=== PATIENT | female | born 1965 | race Caucasian/White ===

== ENCOUNTER → 2018-01-27 | Outpatient (CLI) | payer OTHER ==
[~2018-01-27] MED LIST: RT-ALBUTEROL SULF 2.5 MG/3 ML PRE-MIX VIAL INH ONE
--- NOTE | 2018-01-27 12:31 | Diagnostic Imaging Report ---
PA and lateral chest at 1141 hours. INDICATION: Asthma, worsening cough. There are no prior studies available for comparison. FINDINGS: The heart size is within normal limits. The lungs are clear. There is no evidence for failure, pneumonia or for pleural effusion. Mediastinum is not widened. The osseous structures are intact. IMPRESSION: There is no evidence for an acute cardiopulmonary abnormality. Dictated by: Dictated on workstation # [id number]
== END ==
LOC: RT 09:12
PROVIDERS: ATTEND Neuromusculoskeletal Medicine, Sports Medicine
DX: Z02.71 Encounter for disability determination (principal)
CPT/HCPCS: 71046; 94060

== ENCOUNTER 2018-10-27 14:30 | Outpatient (CLI) | payer MEDICAID ==
[~2018-10-27] VITALS: Ht 152.4 cm; Wt 90.7 kg
[2018-10-27] MEDS ORDERED: BUPR100T15 PO (14:42)
[2018-10-27] MEDS ORDERED: CLON0.5T13 PO (14:42)
[2018-10-27] MEDS ORDERED: ATOR20TA66 PO (15:46)
[2018-10-27] MEDS ORDERED: LEVO75TA6 PO (15:46)
[2018-10-27] MEDS ORDERED: LISI1TAB8 PO (15:46)
[2018-10-27] MEDS ORDERED: RT-ALBUINH IH (15:46)
[2018-10-27] MEDS ORDERED: PANT20TA3 PO (15:46)
[2018-10-27] MEDS ORDERED: ASPI-586 PO (15:46)
[2018-10-27] MEDS ORDERED: METO100T12 PO (15:46)
== END 2018-10-27 15:47 | disposition home or self-care (01) ==
LOC: PREOP 14:30
PROVIDERS: ATTEND Surgery
DX: Z01.818 Encounter for other preprocedural examination (principal)

== ENCOUNTER 2019-05-29 21:29 | Emergency (ER) | payer MEDICAID ==
[~2019-05-29] VITALS: Ht 152.4 cm; Wt 81.4 kg
[~2019-05-29 21:29] MED LIST changes: +ASPI-586 PO; +ATOR20TA66 PO; +BUPR100T15 PO; +CLON0.5T13 PO; +LEVO75TA6 PO; +LISI1TAB8 PO; +METO100T12 PO; +PANT20TA3 PO; +RT-ALBUINH IH; -RT-ALBUTEROL SULF 2.5 MG/3 ML PRE-MIX VIAL INH ONE
--- NOTE | 2019-05-29 22:04 | ED General ---
General Stated Complaint: DENTAL PAIN History of Present Illness Date Seen by Provider: May 29, 2019 Time Seen by Provider: 21:45 Initial Comments Patient's there is swelling in the left jaw she was in urgent care earlier this morning reveal shot of what sounded like Rocephin but is Continuing to swell in that left lower jaw. No fever no chills not coughing up anything has no problems swallowing history of salivary gland stones and swelling but this seems to be related to a bad tooth in the left posterior lower jaw Timing/Duration: 2-3 Days Severity: Moderate Modifying Factors: worse with Eating, worse with Movement Associated Systoms: No Cough, No Malaise, No Nausea/Vomiting Allergies and Home Medications Allergies Coded Allergies: levofloxacin (Unverified Allergy, Severe, RASH, 01/27/18) Uncoded Allergies: codine (Adverse Reaction, Unknown, 01/27/18) nausea Home Medications Albuterol Sulfate 1 Puff Puff, 2 PUFF IH Q4H PRN for WHEEZING, (Reported) 1 PUFF = 90 MCG Aspirin 81 Mg Tablet.dr, 81 MG PO DAILY, (Reported) Atorvastatin Calcium 20 Mg Tablet, 20 MG PO DAILY, (Reported) Bupropion HCl 100 Mg Tablet, 100 MG PO BID, (Reported) Clonazepam 0.5 Mg Tablet, 0.5 MG PO TID, (Reported) Levothyroxine Sodium 75 Mcg Tablet, 75 MCG PO DAILY, (Reported) Lisinopril/Hydrochlorothiazide 1 Each Tablet, 1 EACH PO DAILY, (Reported) Metoprolol Tartrate 100 Mg Tablet, 100 MG PO BID, (Reported) Pantoprazole Sodium 20 Mg Tablet.dr, 20 MG PO DAILY, (Reported) Patient Home Medication List Home Medication List Reviewed: Yes Review of Systems Review of Systems Constitutional: No chills, No fever, No malaise, No weakness EENTM: mouth swelling; No ear pain, No mouth pain, No throat pain Respiratory: no symptoms reported Cardiovascular: no symptoms reported Gastrointestinal: no symptoms reported Genitourinary: no symptoms reported Musculoskeletal: no symptoms reported Skin: no symptoms reported Past Tnnqmdz-Xqcafd-Xyimgt Hx Past Med/Social Hx: Reviewed Nursing Past Med/Soc Hx Patient Social History Type Used: Cigarettes Recent Foreign Travel: No Contact w/Someone Who Travel: No Recent Hopitalizations: No Seasonal Allergies Seasonal Allergies: Yes Past Medical History Surgeries: Yes (oral sx, lithotripsy) Bladder Surgery Respiratory: Yes (wears oxygen at hs, and during day prn) Asthma, Emphysema Cardiac: Yes Hypertension Neurological: No Genitourinary: Yes Kidney Stones Gastrointestinal: Yes Gastroesophageal Reflux Endocrine: Yes Hypothyroidsim HEENT: No Cancer: No Psychosocial: Yes Anxiety, Depression Blood Disorders: Yes (anemia) Physical Exam Vital Signs Vital Signs - First Documented 05/29/19 21:37 Temp 36.0 Pulse 77 Resp 20 B/P (MAP) 154/102 (119) Pulse Ox 98 O2 Delivery Room Air Capillary Refill : Height, Weight, BMI Height: 5'0.00" Weight: 200lbs. 0.0oz. 90.148448wo; 39.1 BMI Method: General Appearance: WD/WN, Moderate Distress Eyes: Bilateral Eye PERRL, Bilateral Eye EOMI HEENT: TMs Normal, Other (pharyngeal erythema noted significant swelling in the left lower jaw palpable externally as well as noted internally with the tooth on the lower jaws demonstrating quite a bit of dental caries.) Neck: Lymphadenopathy (L); No Lymphadenopathy (R) Respiratory: Lungs Clear, No Respiratory Distress Cardiovascular: Regular Rate, Rhythm, No Murmur Gastrointestinal: Normal Bowel Sounds, Soft Neurologic/Psychiatric: Alert, Oriented x3 Skin: Normal Color, Warm/Dry Progress/Results/Core Measures Suspected Sepsis SIRS Temperature: Pulse: Respiratory Rate: Blood Pressure / Mean: Results/Orders My Orders Orders - FREDDY ROWE JR, MD Ct Maxillofacial Wo (05/29/19 21:58) Ibuprofen Tablet (Motrin Tablet) (05/29/19 23:45) Medications Given in ED Current Medications Medications Dose Ordered Sig/Rebekah Route Start Time Stop Time Status Last Admin Dose Admin Ibuprofen 600 mg ONCE ONCE PO 05/29/19 23:45 05/29/19 23:46 DC 05/29/19 23:45 600 MG Vital Signs/I&O 05/29/19 21:37 Temp 36.0 Pulse 77 Resp 20 B/P (MAP) 154/102 (119) Pulse Ox 98 O2 Delivery Room Air Capillary Refill : Progress Note : Time: 23:[address] scan shows a dental abscess but no abscess in the side of the cheek at this time will the plan of Rocephin daily for the next 3 days dental appointment with extraction as soon as possible will send home with the [employer] home pack due to the amount of swelling in the [place] side of the face. Departure Impression Primary Impression: Dental caries Additional Impression: Dental abscess Disposition: HOME, SELF-CARE Condition: Stable Departure-Patient Inst. Referrals: NO,LOCAL PHYSICIAN (PCP/Family) Primary Care Physician Patient Instructions: Tooth Abscess (DC) FREDDY ROWE JR, MD May 29, 2019 22:04
[2019-05-29] MEDS ORDERED: IBUPROFEN 600 MG (MOTRIN) TAB PO ONE (23:45)
[2019-05-30] MEDS ORDERED: RX-HYDROCODONE/APAP 5/325 MG #4 TAB PK PO PRN
[2019-05-30 00:05] VITALS: BP 142/96
--- NOTE | 2019-05-30 06:38 | Diagnostic Imaging Report ---
PROCEDURE: CT maxillofacial without contrast. TECHNIQUE: Multiple contiguous axial images were obtained through the facial bones without the use of intravenous contrast. Auto Exposure Controls were utilized during the CT exam to meet ALARA standards for radiation dose reduction. INDICATION: Facial swelling. COMPARISON: None FINDINGS: There is asymmetric soft tissue swelling primarily overlying the left mandible. There is some extension into the submental region as well as into the premaxillary region of the left face. Evaluation for small focal fluid collection is suboptimal given lack of intravenous contrast. There is also beam hardening artifact from patient's indwelling metallic fillings. Despite this, no large air-fluid collection is seen. There is no soft tissue emphysema. No unexpected radiopaque foreign bodies are identified. A few prominent appearing lymph nodes are also noted, left greater than right. Evaluation of the underlying osseous structures demonstrates focal lucency surrounding the root of the posterior left mandibular molar. There is erosion of the crown. Findings are consistent with dental caries and potential periapical abscess. There is no extension of erosion through the cortex of the mandible. Several other dental erosions consistent with dental caries are also identified involving the bilateral maxillary and mandibular teeth. There is no acute fracture or dislocation of the facial bones. Specifically, there is no fracture or dislocation of the mandible. Bilateral zygomatic arches are intact. Bilateral medial and lateral pterygoid plates are intact as well. Minimal debris is noted within the posterior right ethmoid air cell. Osteoma is also noted on the right. Otherwise, paranasal sinuses are clear without significant mucosal thickening or large air-fluid level. There is no acute fracture of the paranasal sinuses. Nasal septum and nasal bones are intact as well. There is no fracture of the orbits. Globes are symmetric. IMPRESSION: 1. Moderate asymmetric soft tissue swelling epicentered over the left mandible with a few prominent asymmetric left soft tissue lymph nodes. 2. No discrete focal fluid collection to suggest abscess, although evaluation is suboptimal for reasons stated above. 3. Multiple dental caries, greatest involving the posterior left mandibular molar with findings concerning for periapical abscess. Dental consultation is advised. Dictated by: Dictated on workstation # [id number]
== END 2019-05-30 00:05 | disposition home or self-care (01) ==
LOC: EDUNIT# 21:29 → ER FS 21:31
DX: K02.9 Dental caries, unspecified (principal); K04.7 Periapical abscess without sinus; J43.9 Emphysema, unspecified; I10 Essential (primary) hypertension; F41.9 Anxiety disorder, unspecified; F32.9 Major depressive disorder, single episode, unspecified; D64.9 Anemia, unspecified; Z87.442 Personal history of urinary calculi; Z88.1 Allergy status to other antibiotic agents; Z88.5 Allergy status to narcotic agent; Z79.82 Long term (current) use of aspirin
CPT/HCPCS: 70486

== ENCOUNTER → 2020-09-18 | Outpatient (CLI) | payer MEDICARE, MEDICAID ==
[~2020-09-18] MED LIST changes: -CLON0.5T13 PO; +CLON0.5T4 PO; +LISI1TAB46 PO; -LISI1TAB8 PO; +PANT20TA18 PO; -PANT20TA3 PO
== END ==
LOC: CARD 09:00
PROVIDERS: ATTEND Nurse Practitioner Family
DX: R07.89 Other chest pain (principal); R06.09 Other forms of dyspnea
CPT/HCPCS: 93306

== ENCOUNTER → 2020-12-25 | Outpatient (CLI) | payer MEDICARE, MEDICAID ==
--- NOTE | 2020-12-25 12:50 | Diagnostic Imaging Report ---
INDICATION: Pain. FINDINGS: Three views of the right foot show no fracture, dislocation, erosion, or osseous destructive process. No site of suspicious bone formation. The alignment is normal. IMPRESSION: No acute finding. Dictated by: Dictated on workstation # [id number]
== END ==
LOC: RAD FS 10:51
PROVIDERS: ATTEND Nurse Practitioner Family
DX: S99.921A Unspecified injury of right foot, initial encounter (principal); X58.XXXA Exposure to other specified factors, initial encounter
CPT/HCPCS: 73630

== ENCOUNTER → 2021-03-12 | Outpatient (CLI) | payer MEDICARE, MEDICAID | LOC: CARD 09:30 | PROVIDERS: ATTEND Nurse Practitioner Family | DX: I35.1 Nonrheumatic aortic (valve) insufficiency (principal) | CPT/HCPCS: 93306 ==

== ENCOUNTER → 2021-11-22 | Outpatient (CLI) | payer MEDICARE, MEDICAID ==
--- NOTE | 2021-11-22 13:52 | Diagnostic Imaging Report ---
PROCEDURE: CT head without contrast. TECHNIQUE: Multiple contiguous axial images were obtained through the brain without the use of intravenous contrast. Auto Exposure Controls were utilized during the CT exam to meet ALARA standards for radiation dose reduction. INDICATION: Frequent falls with bilateral lower extremity weakness. CT HEAD: CT images of the head were obtained. FINDINGS: Ventricles and sulci are within normal limits for size. There is no intracranial hemorrhage identified. There is no abnormal mass effect or shift of midline structures. IMPRESSION: Unremarkable CT of the head. Dictated by: Dictated on workstation # [id number]
== END ==
LOC: RAD FS 13:33
PROVIDERS: ATTEND Nurse Practitioner Family
DX: R29.6 Repeated falls (principal); R53.1 Weakness
CPT/HCPCS: 70450

== ENCOUNTER 2022-03-19 18:46 | Emergency (ER) | payer MEDICARE, MEDICAID ==
[~2022-03-19] VITALS: Ht 152 cm; Wt 66.2 kg
--- NOTE | 2022-03-19 18:53 | ED Lower Extremity ---
General Stated Complaint: L ANKLE SWELLING History of Present Illness Date Seen by Provider: Mar 19, 2022 Time Seen by Provider: 18:51 Initial Comments 56-year-old female presents with left medial ankle swelling and warmth. Patient reports she has had lateral ankle swelling for quite a while to that ankle but over the last couple days she has had swelling over the medial part. That has some mild erythema and redness. She denies any known injury. The warmth and swelling has not significantly expanded. She denies any systemic complaints. Allergies and Home Medications Allergies Coded Allergies: levofloxacin (Unverified Allergy, Severe, RASH, 01/27/18) Uncoded Allergies: codine (Adverse Reaction, Unknown, 01/27/18) nausea Patient Home Medication List Home Medication List Reviewed: Yes Albuterol Sulfate (Proair Hfa) 1 Puff Puff, 2 PUFF IH Q4H PRN for WHEEZING, (Reported) Entered as Reported by: SHAKIRA WHEATLEY on 10/27/18 154 Aspirin (Aspir 81) 81 Mg Tablet.dr, 81 MG PO DAILY, (Reported) Entered as Reported by: SHAKIRA WHEATLEY on 10/27/18 154 Atorvastatin Calcium (Atorvastatin Calcium) 20 Mg Tablet, 20 MG PO DAILY, (Reported) Entered as Reported by: SHAKIRA WHEATLEY on 10/27/181545 Bupropion HCl (Bupropion HCl) 100 Mg Tablet, 100 MG PO BID, (Reported) Entered as Reported by: SHAKIRA WHEATLEY on 10/27/18 144 Cephalexin (Cephalexin) 500 Mg Tablet, 500 MG PO QID Prescribed by: MASOUD MUNOZ on 03/19/221948 Clonazepam (Clonazepam) 0.5 Mg Tablet, 0.5 MG PO TID, (Reported) Entered as Reported by: SHAKIRA WHEATLEY on 10/27/18 144 Levothyroxine Sodium (Levothyroxine Sodium) 75 Mcg Tablet, 75 MCG PO DAILY, (Reported) Entered as Reported by: SHAKIRA WHEATLEY on 10/27/181545 Lisinopril/Hydrochlorothiazide (Lisinopril-Hctz 20-12.5 mg Tab) 1 Each Tablet, 1 EACH PO DAILY, (Reported) Entered as Reported by: SHAKIRA WHEATLEY on 10/27/181545 Metoprolol Tartrate (Metoprolol Tartrate) 100 Mg Tablet, 100 MG PO BID, (Reported) Entered as Reported by: SHAKIRA WHEATLEY on 10/27/181545 Pantoprazole Sodium (Pantoprazole Sodium) 20 Mg Tablet.dr, 20 MG PO DAILY, (Reported) Entered as Reported by: SHAKIRA WHEATLEY on 10/27/181545 Review of Systems Constitutional: No chills, No fever EENTM: no symptoms reported Respiratory: no symptoms reported Cardiovascular: no symptoms reported Gastrointestinal: no symptoms reported Genitourinary: no symptoms reported Musculoskeletal: see HPI Skin: see HPI Psychiatric/Neurological: No Symptoms Reported Past Xmlvjdp-Veqffo-Abvbav Hx Seasonal Allergies Seasonal Allergies: Yes Past Medical History Surgeries: Yes (oral sx, lithotripsy) Bladder Surgery Respiratory: Yes (wears oxygen at hs, and during day prn) Asthma, Emphysema Cardiac: Yes Hypertension Neurological: No Genitourinary: Yes Kidney Stones Gastrointestinal: Yes Gastroesophageal Reflux Endocrine: Yes Hypothyroidsim HEENT: No Cancer: No Psychosocial: Yes Anxiety, Depression Integumentary: No Blood Disorders: Yes (anemia) Physical Exam Vital Signs Vital Signs - First Documented 03/19/22 19:04 Temp 36.6 Pulse 68 Resp 20 B/P (MAP) 164/92 (116) Pulse Ox 97 O2 Delivery Room Air Capillary Refill : Height, Weight, BMI Height: 5'0.00" Weight: 200lbs. 0.0oz. 90.510895pz; 35.00 BMI Method: General Appearance: WD/WN, no apparent distress Neck: full range of motion, supple Cardiovascular: normal peripheral pulses, regular rate, rhythm Respiratory: lungs clear, normal breath sounds Gastrointestinal: non tender, soft Ankles: left ankle soft tissue tenderness, left ankle swelling Neurologic/Psychiatric: alert, normal mood/affect, oriented x 3 Skin: other (Mild warmth and erythema left medial ankle) Progress/Results/Core Measures Results/Orders Lab Results Laboratory Tests Test 03/19/22 19:11 Range/Units White Blood Count 9.3 4.3-11.0 10^3/uL Red Blood Count 3.63 L 3.80-5.11 10^6/uL Hemoglobin 12.7 11.5-16.0 g/dL Hematocrit 36 35-52 % Mean Corpuscular Volume 99 80-99 fL Mean Corpuscular Hemoglobin 35 H 25-34 pg Mean Corpuscular Hemoglobin Concent 35 32-36 g/dL Red Cell Distribution Width 12.3 10.0-14.5 % Platelet Count 208 130-400 10^3/uL Mean Platelet Volume 9.1 9.0-12.2 fL Immature Granulocyte % (Auto) 0 % Neutrophils (%) (Auto) 70 42-75 % Lymphocytes (%) (Auto) 21 12-44 % Monocytes (%) (Auto) 8 0-12 % Eosinophils (%) (Auto) 1 0-10 % Basophils (%) (Auto) 0 0-10 % Neutrophils # (Auto) 6.5 1.8-7.8 10^3/uL Lymphocytes # (Auto) 1.9 1.0-4.0 10^3/uL Monocytes # (Auto) 0.7 0.0-1.0 10^3/uL Eosinophils # (Auto) 0.1 0.0-0.3 10^3/uL Basophils # (Auto) 0.0 0.0-0.1 10^3/uL Immature Granulocyte # (Auto) 0.0 0.0-0.1 10^3/uL C-Reactive Protein 2.44 H <0.50 MG/DL My Orders Orders - MASOUD MUNOZ DO Cbc With Automated Diff (03/19/22 19:05) Crp Fs (03/19/22 19:05) Uric Acid (03/19/22 19:05) Ankle 3 View Left (03/19/22 19:05) Cephalexin Capsule (Keflex Capsule) (03/19/22 19:45) Ketorolac Injection (Toradol Injection) (03/19/22 19:46) Vital Signs/I&O 03/19/22 19:04 Temp 36.6 Pulse 68 Resp 20 B/P (MAP) 164/92 (116) Pulse Ox 97 O2 Delivery Room Air Progress Progress Note : Progress Note Patient's x-rays labs and exam seem more consistent with cellulitis versus gout. I will start her on Keflex. Did recommend that she however take ibuprofen 800 mg 3 times a day or Naprosyn twice daily. Patient is given Keflex in the ER along with Toradol shot. She is to follow-up with her primary care provider about a week for recheck sooner if it worsens. Patient stable and discharged home Departure Impression Primary Impression: Cellulitis of left ankle Disposition: HOME, SELF-CARE Condition: Stable Departure-Patient Inst. Referrals: CHEYANNE ROSS APRN (PCP) Primary Care Physician [facility] (Family) Primary Care Physician Patient Instructions: Cellulitis and Erysipelas (Skin Infections) Add. Discharge Instructions: 800 mg ibuprofen 3 times a day or Aleve/naproxen twice daily for 5 days Follow-up with your primary care provider in about 1 week for recheck or sooner if symptoms continue to worsen Scripts Cephalexin (Cephalexin) 500 Mg Tablet 500 MG PO QID, #20 TAB 0 Refills . Prov: MASOUD MUNOZ DO 03/19/22 MASOUD MUNOZ DO Mar 19, 2022 18:53
[2022-03-19 19:20] LABS: BASOPHILS % (AUTO) 0 % (0-10); EOSINOPHILS # (AUTO) 0.1 10^3/uL (0.0-0.3); EOSINOPHILS % (AUTO) 1 % (0-10); HEMATOCRIT 36 % (35-52); HEMOGLOBIN 12.7 g/dL (11.5-16.0); LYMPHOCYTES # (AUTO) 1.9 10^3/uL (1.0-4.0); LYMPHOCYTES % (AUTO) 21 % (12-44); MEAN CORPUSCULAR HEMOGLOBIN 35 pg (25-34); MEAN CORPUSCULAR HGB CONC 35 g/dL (32-36); MEAN CORPUSCULAR VOLUME 99 fL (80-99); MEAN PLATELET VOLUME 9.1 fL (9.0-12.2); MONOCYTES # (AUTO) 0.7 10^3/uL (0.0-1.0); MONOCYTES % (AUTO) 8 % (0-12); NEUTROPHILS # (AUTO) 6.5 10^3/uL (1.8-7.8); NEUTROPHILS % (AUTO) 70 % (42-75); PLATELET COUNT 208 10^3/uL (130-400); WHITE BLOOD COUNT 9.3 10^3/uL (4.3-11.0)
--- NOTE | 2022-03-19 19:31 | Diagnostic Imaging Report ---
INDICATION: Left ankle pain and swelling. AP, oblique and lateral views of left ankle reveal diffuse swelling however no acute fracture or malalignment is identified. There is no suspicious lytic or sclerotic lesion. IMPRESSION: Diffuse swelling and possible ankle joint effusion. This could be related to edema or cellulitis and clinical correlation is recommended. Dictated by: Dictated on workstation # [id number]
[2022-03-19] MEDS ORDERED: CEPHALEXIN 250 MG (KEFLEX) CAP PO ONE (19:45)
[2022-03-19] MEDS ORDERED: KETOROLAC 30 MG/ML VIAL IM STA (19:46)
[2022-03-19] MEDS ORDERED: CEPH500T PO ×2 (19:49→19:53)
[2022-03-19 20:00] VITALS: BP 178/84
[2022-03-20 14:57] LABS: URIC ACID 6.5 MG/DL (2.6-7.2)
== END 2022-03-19 20:01 | disposition home or self-care (01) ==
LOC: EDUNIT# 18:46 → ER FS 18:47
DX: L03.116 Cellulitis of left lower limb (principal); Z88.1 Allergy status to other antibiotic agents; Z28.310 Unvaccinated for COVID-19
CPT/HCPCS: 36415; 73610; 84550; 85025; 86141

== ENCOUNTER → 2022-04-09 | Outpatient (CLI) | payer MEDICARE, MEDICAID ==
[~2022-04-09] MED LIST changes: +ALBU8.5H6 IH; +CEPH500T PO; -RT-ALBUINH IH
--- NOTE | 2022-04-09 17:57 | Diagnostic Imaging Report ---
EXAMINATION: Left wrist, three or more views. REASON FOR EXAM: Chronic left wrist pain. COMPARISON: None available. FINDINGS: No acute fracture or dislocation in the left wrist. Alignment is anatomic. No suspicious focal osseous lesions. Mild degenerative changes are present in the left wrist, greatest in the left first CMC joint with marginal osteophytes and joint space narrowing. IMPRESSION: 1. No acute fracture or dislocation in the left wrist. Dictated by: Dictated on workstation # [id number]
== END ==
LOC: RAD FS 15:08
PROVIDERS: ATTEND Nurse Practitioner
DX: M25.532 Pain in left wrist (principal)
CPT/HCPCS: 73110

== ENCOUNTER 2023-01-19 16:47 | Emergency (ER) | payer MEDICARE, MEDICAID ==
[~2023-01-19] VITALS: Ht 152.4 cm; Wt 61.7 kg
--- NOTE | 2023-01-19 17:28 | ED General ---
General Chief Complaint: General Problems/Pain Stated Complaint: HIGH BP Source of Information: Patient History of Present Illness Date Seen by Provider: Jan 19, 2023 Time Seen by Provider: 16:51 Initial Comments 57-year-old female presenting with complaints of high blood pressure. She states that she has had a slight frontal headache as well. They recently increased her lisinopril dose and added hydrochlorothiazide within the last month. She reports having labs done last week and she has not heard the there was any issue with those. She had checked her blood pressure at home today before taking her medications for blood pressure and it was 168/108. After taking her meds it did slowly start to come down but that bottom number continue to read high. She called the [facility] clinic they advised her to go to the emergency department because of her pressure. Currently she states she has a frontal headache that is a 3 or 4. She was not sure if the headache was rebound from not taking ibu profen after taking it scheduled for a few months. She is still healing from injury to her left wrist as well as she has cellulitis on the left leg and neuropathy in both feet. With her chronic pain she could have some elevated blood pressure from that. She states that she also smokes cigarettes and drinks at least a glass of tequila daily. Severity: Moderate Associated Systoms: No Chest Pain, No Cough, No Diaphoresis, No Fever/Chills; Headaches; No Loss of Appetite, No Malaise, No Nausea/Vomiting, No Rash, No Seizure, No Shortness of Air, No Syncope, No Weakness Allergies and Home Medications Allergies Coded Allergies: levofloxacin (Unverified Allergy, Severe, RASH, 01/27/18) Uncoded Allergies: codine (Adverse Reaction, Unknown, 01/27/18) nausea Patient Home Medication List Home Medication List Reviewed: Yes Albuterol Sulfate (Ventolin Hfa) 1 Puff Puff, 2 PUFF IH Q4H PRN for WHEEZING, (Reported) Entered as Reported by: SHAKIRA WHEATLEY on 10/27/18 1546 Aspirin (Aspir 81) 81 Mg Tablet.dr, 81 MG PO DAILY, (Reported) Entered as Reported by: SHAKIRA WHEATLEY on 10/27/18 1546 Atorvastatin Calcium (Atorvastatin Calcium) 20 Mg Tablet, 20 MG PO DAILY, (Reported) Entered as Reported by: SHAKIRA WHEATLEY on 10/27/18 154 Bupropion HCl (Bupropion HCl) 100 Mg Tablet, 100 MG PO BID, (Reported) Entered as Reported by: SHAKIRA WHEATLEY on 10/27/18 144 Cephalexin (Cephalexin) 500 Mg Tablet, 500 MG PO QID Prescribed by: MASOUD MUNOZ on 03/19/221952 Clonazepam (Clonazepam) 0.5 Mg Tablet, 0.5 MG PO TID, (Reported) Entered as Reported by: SHAKIRA WHEATLEY on 10/27/18 144 Levothyroxine Sodium (Levothyroxine Sodium) 75 Mcg Tablet, 75 MCG PO DAILY, (Reported) Entered as Reported by: SHAKIRA WHEATLEY on 10/27/18 154 Lisinopril/Hydrochlorothiazide (Lisinopril-Hctz 20-12.5 mg Tab) 1 Each Tablet, 1 EACH PO DAILY, (Reported) Entered as Reported by: SHAKIRA WHEATLEY on 10/27/18 154 Metoprolol Tartrate (Metoprolol Tartrate) 100 Mg Tablet, 100 MG PO BID, (Reported) Entered as Reported by: SHAKIRA WHEATLEY on 10/27/18 154 Pantoprazole Sodium (Pantoprazole Sodium) 20 Mg Tablet.dr, 20 MG PO DAILY, (Reported) Entered as Reported by: SHAKIRA WHEATLEY on 10/27/181545 Review of Systems Review of Systems Constitutional: No chills, No diaphoresis, No dizziness, No fever, No malaise EENTM: No ear pain, No blurred vision, No nose congestion Respiratory: No cough, No short of breath Cardiovascular: No palpitations Gastrointestinal: No nausea, No vomiting Genitourinary: No dysuria Musculoskeletal: see HPI Skin: No rash Psychiatric/Neurological: Headache (Frontal) Past Qiixbum-Vpxuhx-Imkuej Hx Patient Social History Tobacco Use?: Yes Substance use?: No Alcohol Use?: Yes Alcohol type: Hard Liquor (Tequila daily) Alcohol Frequency: Daily Immunizations Up To Date First/Initial COVID19 Vaccinat: Yes Seasonal Allergies Seasonal Allergies: Yes Past Medical History Surgery/Hospitalization HX: Hypertension, neuropathy, hypothyroidism, asthma, COPD Surgeries: Yes (oral sx, lithotripsy) Bladder Surgery Respiratory: Yes (wears oxygen at hs, and during day prn) Asthma, Emphysema Cardiac: Yes Hypertension Neurological: No Genitourinary: Yes Kidney Stones Gastrointestinal: Yes Gastroesophageal Reflux Endocrine: Yes Hypothyroidsim HEENT: No Cancer: No Psychosocial: Yes Anxiety, Depression Integumentary: No Blood Disorders: Yes (anemia) Physical Exam Vital Signs Vital Signs - First Documented 01/19/23 16:55 Temp 36.7 Pulse 72 Resp 14 B/P (MAP) 166/93 (117) O2 Delivery Room Air Capillary Refill : Height, Weight, BMI Height: 5'0.00" Weight: 200lbs. 0.0oz. 90.089632bp; 28.00 BMI Method: General Appearance: No Apparent Distress, WD/WN HEENT: PERRL/EOMI, Pharynx Normal Neck: Full Range of Motion, Normal Inspection, Non Tender, Supple Respiratory: Chest Non Tender, Lungs Clear, Normal Breath Sounds Cardiovascular: Regular Rate, Rhythm, Normal Peripheral Pulses Neurologic/Psychiatric: Alert, Oriented x3, grant manager II-XII Norm as Tested Skin: Normal Color, Warm/Dry Progress/Results/Core Measures Suspected Sepsis SIRS Temperature: Pulse: Respiratory Rate: Blood Pressure / Mean: Results/Orders Vital Signs/I&O 01/19/23 16:55 Temp 36.7 Pulse 72 Resp 14 B/P (MAP) 166/93 (117) O2 Delivery Room Air Capillary Refill : Progress Note : Progress Note On comparison here her blood pressure was 144/90 and then using her machine it read 153/100. When rechecked she was 135/76 lumbar machine and 155/96 on her machine. Counseled that she likely needs the machine calibrated her new blood pressure cuff as this 1 is reading about 20 points higher than what we are getting. She denies having any chest pain, severe headache, change in vision, nausea, vomiting, new numbness or weakness in her arms or legs. Advised that if she did develop any of the symptoms that she should be reevaluated. Offered to obtain blood work and look to see if there is issues with her electrolytes were signs of severe infection or kidney or liver failure that could be contributing to her high blood pressure and patient declined stating that she just had labs done with [facility] clinic and they had not called her so she did not feel that there was any issue with the labs. Counseled to try checking with the [facility] clinic about calibrating her machine since she reports they told her over the phone that they could. Advised that she could try doing acetaminophen 325 mg to 650 mg every 6 hours as needed for pain and that would not interfere with her blood pressure medicines or kidneys. This may also help with her pain and help keep her blood pressures down as well. Departure Impression Primary Impression: Essential hypertension Additional Impression: Labile hypertension Disposition: 01 HOME, SELF-CARE Condition: Stable Departure-Patient Inst. Decision time for Depature: 17:26 Referrals: JUAN BRAR APRN (PCP) Primary Care Physician [facility] (Family) Primary Care Physician Patient Instructions: High Blood Pressure ED, Controlling your blood pressure through lifestyle, DASH Diet Add. Discharge Instructions: Your blood pressure here was 135/76 however your machine read 155/96 so it was 20 points higher than what your test showed here. If the clinic as a way to calibrate and adjust the blood pressure cuff You could have them do that. Otherwise while using the cuff subtract 20 points from each number. Consider taking acetaminophen or Tylenol regular strength which would be 325 mg, at a dose of 1 to 2 pills every 6 hours as needed for pain. This will not have an effect on your kidneys and should not interfere with your blood pressure medications. If you have chest pain, worsening headache, nausea, vomiting, worsening symptoms you should be seen again to have further evaluation. Otherwise certainly follow-up through the clinic for continued management of your blood pressure. All discharge instructions reviewed with patient and/or family. Voiced understanding. SOILA CHEN MD Jan 19, 2023 17:28
[2023-01-19 17:36] VITALS: BP 135/76
== END 2023-01-19 17:36 | disposition home or self-care (01) ==
LOC: EDUNIT# 16:47 → ER FS 16:48
DX: I10 Essential (primary) hypertension (principal); J43.9 Emphysema, unspecified; F17.210 Nicotine dependence, cigarettes, uncomplicated; Z99.81 Dependence on supplemental oxygen
CPT/HCPCS: 99281